=== PATIENT | male | born 1990 | race Caucasian/White ===

== ENCOUNTER 2020-01-22 12:47 | Emergency (ER) | payer MEDICAID ==
[~2020-01-22] VITALS: Ht 170.2 cm; Wt 92.5 kg
[2020-01-22 12:59] VITALS: BP 123/70; Ht 170.2 cm; Wt 92.5 kg
== END 2020-01-22 13:32 | disposition home or self-care (01) ==
LOC: ED 12:47
DX: M54.5 Low back pain (principal)
CPT/HCPCS: J1885

== ENCOUNTER 2020-09-03 21:33 | Emergency (ER) | payer MEDICAID ==
[~2020-09-03] VITALS: Ht 172.7 cm; Wt 87.5 kg
[2020-09-03 21:42] VITALS: Ht 172.7 cm; Wt 87.5 kg
[2020-09-03 23:30] VITALS: BP 144/89
== END 2020-09-03 23:30 | disposition home or self-care (01) ==
LOC: ED 21:33
DX: J36 Peritonsillar abscess (principal); Z20.2 Contact with and (suspected) exposure to infections with a predominantly sexual mode of transmission
CPT/HCPCS: 87491; 87591; J0696; J7512